=== PATIENT | female | born 1995 | race American Indian/Alaskan Native ===

== ENCOUNTER 2020-11-04 13:32 | Emergency (ER) | payer SELFPAY ==
[2020-11-04 13:52] VITALS: BP 105/69
--- NOTE | 2020-11-04 13:55 | Emergency Department Report ---
Blank Doc - Documentation Documentation: 25-year-old G2 who P1 vaginal presents emerge department for evaluation of cur rent at the been evaluated at a local clinic with a suspicion for no pole being seen on ultrasound and no associated vaginal bleeding or discharge, no fever, chills, sweats no chest pain no palpitation no shortness of breath no dysuria This initial assessment/diagnostic orders/clinical plan/treatment(s) is/are subject to change based on patients health status, clinical progression and re- assessment by fellow clinical providers in the ED. Further treatment and workup at subsequent clinical providers discretion. Patient/guardian urged not to elope from the ED as their condition may be serious if not clinically assessed and managed. Initial orders include: Labs ultrasound urinalysis
--- NOTE | 2020-11-04 14:16 | Emergency Department Report ---
ED Female HPI - General Chief complaint: Abdominal Pain Stated complaint: POSSIBLE MISCARRIAGE Time Seen by Provider: 11/04/20 14:15 Source: patient Mode of arrival: Ambulatory Limitations: No Limitations - History of Present Illness Initial comments: Patient is a 25-year-old -[place] female that comes to the emergency room from the clinic to rule out a miscarriage. This is her third . She has 2 living children. Her last menstrual cycle was 9-24. Patient endorses low back pain but denies any dysuria frequency or urgency. Patient denies fever or chills. She denies abdominal pain. She denies nausea vomiting or diarrhea. Patient is ambulatory and nontoxic on arrival to the ER. She has no hypotension, tachycardia or fever. MD Complaint: other -: Gradual, days(s) Location: other Severity: mild Quality: aching Consistency: intermittent Improves with: none Worsens with: none Are you Now?: Yes Last Menstrual Period: 08/21/20 EDC: 05/28/21 - Related Data Previous Rx's Medication Instructions Recorded Last Taken Type Sulfamethoxazole/Trimethoprim 1 each PO BID #10 tablet 11/04/20 Unknown Rx [Bactrim DS TAB] Allergies Allergy/AdvReac Type Severity Reaction Status Date / Time No Known Allergies Allergy Unverified 11/04/20 13:47 ED Review of Systems ROS: Stated complaint: POSSIBLE MISCARRIAGE Other details as noted in HPI Comment: All other systems reviewed and negative ED Past Medical Hx - Past Medical History Previous Medical History?: No - Surgical History Past Surgical History?: No - Family History Family history: no significant - Social History Substance Use Type: Alcohol - Medications Home Medications: Home Medications Medication Instructions Recorded Confirmed Last Taken Type Sulfamethoxazole/Trimethoprim 1 each PO BID #10 tablet 11/04/20 Unknown Rx [Bactrim DS TAB] ED Physical Exam - General Limitations: No Limitations General appearance: alert, in no apparent distress - Head Head exam: Present: atraumatic, normocephalic - Eye Eye exam: Present: normal appearance - ENT ENT exam: Present: mucous membranes moist - Neck Neck exam: Present: normal inspection - Respiratory Respiratory exam: Present: normal lung sounds bilaterally. Absent: respiratory distress - Cardiovascular Cardiovascular Exam: Present: regular rate, normal rhythm. Absent: systolic murmur, diastolic murmur, rubs, gallop - GI/Abdominal GI/Abdominal exam: Present: soft, normal bowel sounds - Extremities Exam Extremities exam: Present: normal inspection - Back Exam Back exam: Present: normal inspection - Neurological Exam Neurological exam: Present: alert, oriented X3 - Psychiatric Psychiatric exam: Present: normal affect, normal mood - Skin Skin exam: Present: warm, dry, intact, normal color. Absent: rash ED Course Vital Signs 11/04/20 13:48 Temperature 98.8 F Pulse Rate 99 H Respiratory 18 Rate Blood Pressure 105/69 [Right] O2 Sat by Pulse 100 Oximetry ED Medical Decision Making - Lab Data Result diagrams: 11/04/20 15:17 11/04/20 15:17 - Radiology Data Radiology results: report reviewed, image reviewed Ultrasound noted - Medical Decision Making Lab Results 11/04/20 11/04/20 11/04/20 Range/Units 15:17 15:17 15:17 WBC 6.4 (4.5-11.0) K/mm3 RBC 4.64 (3.65-5.03) M/mm3 Hgb 12.3 (10.1-14.3) gm/dl Hct 37.7 (30.3-42.9) % MCV 81 (79-97) fl MCH 27 L (28-32) pg MCHC 33 (30-34) % RDW 13.4 (13.2-15.2) % Plt Count 225 (140-440) K/mm3 Lymph % (Auto) 27.5 (13.4-35.0) % [place] % (Auto) 6.0 (0.0-7.3) % Eos % (Auto) 0.2 (0.0-4.3) % Baso % (Auto) 0.6 (0.0-1.8) % Lymph # (Auto) 1.8 (1.2-5.4) K/mm3 [place] # (Auto) 0.4 (0.0-0.8) K/mm3 Eos # (Auto) 0.0 (0.0-0.4) K/mm3 Baso # (Auto) 0.0 (0.0-0.1) K/mm3 Seg Neutrophils % 65.7 (40.0-70.0) % Seg Neutrophils # 4.2 (1.8-7.7) K/mm3 Sodium (137-145) mmol/L Potassium (3.6-5.0) mmol/L Chloride (98-107) mmol/L Carbon Dioxide (22-30) mmol/L Anion Gap mmol/L BUN (7-17) mg/dL Creatinine (0.6-1.2) mg/dL Estimated GFR ml/min BUN/Creatinine Ratio % Glucose (65-100) mg/dL Calcium (8.4-10.2) mg/dL HCG, Qual Positive (Negative) HCG, Quant 68159 H (0-4) mIU/mL Urine Color (Yellow) Urine Turbidity (Clear) Urine pH (5.0-7.0) Ur Specific [place] (1.003-1.030) Urine Protein (Negative) mg/dL Urine Glucose (UA) (Negative) mg/dL Urine Ketones (Negative) mg/dL Urine Blood (Negative) Urine Nitrite (Negative) Urine Bilirubin (Negative) Urine Urobilinogen (<2.0) mg/dL Ur Leukocyte Esterase (Negative) Urine WBC (Auto) (0.0-6.0) /HPF Urine RBC (Auto) (0.0-6.0) /HPF U Epithel Cells (Auto) (0-13.0) /HPF Urine Mucus /HPF 11/04/20 11/04/20 Range/Units 15:17 Unknown WBC (4.5-11.0) K/mm3 RBC (3.65-5.03) M/mm3 Hgb (10.1-14.3) gm/dl Hct (30.3-42.9) % MCV (79-97) fl MCH (28-32) pg MCHC (30-34) % RDW (13.2-15.2) % Plt Count (140-440) K/mm3 Lymph % (Auto) (13.4-35.0) % [place] % (Auto) (0.0-7.3) % Eos % (Auto) (0.0-4.3) % Baso % (Auto) (0.0-1.8) % Lymph # (Auto) (1.2-5.4) K/mm3 [place] # (Auto) (0.0-0.8) K/mm3 Eos # (Auto) (0.0-0.4) K/mm3 Baso # (Auto) (0.0-0.1) K/mm3 Seg Neutrophils % (40.0-70.0) % Seg Neutrophils # (1.8-7.7) K/mm3 Sodium 137 (137-145) mmol/L Potassium 3.8 (3.6-5.0) mmol/L Chloride 102.0 (98-107) mmol/L Carbon Dioxide 24 (22-30) mmol/L Anion Gap 15 mmol/L BUN 9 (7-17) mg/dL Creatinine 0.6 (0.6-1.2) mg/dL Estimated GFR > 60 ml/min BUN/Creatinine Ratio 15 % Glucose 82 (65-100) mg/dL Calcium 9.9 (8.4-10.2) mg/dL HCG, Qual (Negative) HCG, Quant (0-4) mIU/mL Urine Color Yellow (Yellow) Urine Turbidity Slightly-cloudy (Clear) Urine pH 5.0 (5.0-7.0) Ur Specific [place] 1.025 (1.003-1.030) Urine Protein <15 mg/dl (Negative) mg/dL Urine Glucose (UA) Neg (Negative) mg/dL Urine Ketones Tr (Negative) mg/dL Urine Blood Neg (Negative) Urine Nitrite Neg (Negative) Urine Bilirubin Neg (Negative) Urine Urobilinogen < 2.0 (<2.0) mg/dL Ur Leukocyte Esterase Mod (Negative) Urine WBC (Auto) 4.0 (0.0-6.0) /HPF Urine RBC (Auto) 5.0 (0.0-6.0) /HPF U Epithel Cells (Auto) 17.0 H (0-13.0) /HPF Urine Mucus 1+ /HPF Vital Signs 11/04/20 13:48 Temperature 98.8 F Pulse Rate 99 H Respiratory 18 Rate Blood Pressure 105/69 [Right] O2 Sat by Pulse 100 Oximetry Labs noted. Serum quant noted UA noted. Patient medicated with a gram of Rocephin. Patient is ambulatory, nontoxic and afebrile. She has no hypotension or tachycardia. Patient denies any vaginal bleeding or abdominal pain. She has no nausea vo miting or diarrhea. She has no CVA tenderness. Urine culture is pending. Please call her if she needs something in addition to what we have already provided her. Patient is taking p.o. without difficulty Patient is being discharged home with a course of Bactrim for her UTI. She understands that she needs to follow-up with the [facility] DES[facility] in 48 hours for serial quant levels. I have explained to her that we can not give her an answer about a miscarriage until such time. Patient has been instructed to take Tylenol for pain. Patient also educated on pelvic rest. Patient on discharge is nonill nontoxic and ambulatory. - Differential Diagnosis Rule out miscarriage Critical care attestation.: If time is entered above; I have spent that time in minutes in the direct care of this critically ill patient, excluding procedure time. ED Disposition Clinical Impression: UTI (urinary tract infection), Threatened Disposition: TO HOME OR SELFCARE Is pt being admited?: No Does the pt Need Aspirin: No Condition: Stable Instructions: Threatened Miscarriage, Urinary Tract Infection, Adult, Abdominal Pain (ED) Additional Instructions: nothing in vagina- no sex/tampon tylenol for pain follow up with obgyn in 48hours for repeat labs this is how they will determine if you are having miscarriage referral to obgyn below no drugs/alcohol or cig. smoking diet and activity as tolerated meds as ordered today Prescriptions: Sulfamethoxazole/Trimethoprim [Bactrim DS TAB] 1 each PO BID #10 tablet Referrals: DANIELLE BORJAS MD [Staff Physician] - 3-5 Days Time of Disposition: 16:12
[2020-11-04 14:35] LABS: Bilirubin,Urine NEG (Negative); Blood,Urine NEG (Negative); Color,Urine Yellow (Yellow); Mucus,Urine 1+ /HPF; Protein,Urine <15 mg/dL mg/dL (Negative); Urobilinogen,Urine < 2.0 mg/dL (<2.0)
--- NOTE | 2020-11-04 15:38 | Ultrasound Report ---
US OB transvaginal, US OB <= 14 weeks fetus INDICATION / CLINICAL INFORMATION: pelvic pain and . TECHNIQUE: Transabdominal and Transvaginal. COMPARISON: None available. FINDINGS: UTERUS: Appears within normal limits. 2.3 cm lower uterine segment lesion most consistent with a fibr oid. GESTATIONAL SAC: Well-defined oval shape and intrauterine in location. Measures 25 mm which is consis tent with 7 weeks and 4 days. YOLK SAC: Not visualized. EMBRYO/FETUS: No pole is visualized. ADNEXA: No significant abnormality. FREE FLUID: None. ADDITIONAL FINDINGS: None. IMPRESSION: 1. There is a gestational sac measuring 25 mm without a pole. This is highly suggestive of preg sudhakar failure. Recommend correlation with trending beta-hCG and repeat sonograms as clinically needed . Signer Name: Greg Martinez MD Signed: 11/04/2020 3:33 PM Workstation Name: [id number]
[2020-11-04 15:47] LABS: Basophils % (Auto) 0.6 % (0.0-1.8); Eosinophils % (Auto) 0.2 % (0.0-4.3); Hematocrit 37.7 % (30.3-42.9); Hemoglobin 12.3 gm/dl (10.1-14.3); Lymphocytes # (Auto) 1.8 K/mm3 (1.2-5.4); Lymphocytes % (Auto) 27.5 % (13.4-35.0); Mean Corpuscular HGB Conc 33 % (30-34); Mean Corpuscular Volume 81 fl (79-97); Monocytes # (Auto) 0.4 K/mm3 (0.0-0.8); Platelet Count 225 K/mm3 (140-440); Red Blood Count 4.64 M/mm3 (3.65-5.03); Red Cell Distribution Width 13.4 % (13.2-15.2)
[2020-11-04 15:50] LABS: Blood Urea Nitrogen 9 mg/dL (7-17); Calcium 9.9 mg/dL (8.4-10.2); Hemolysis Index 10
[2020-11-04] MEDS ORDERED: LIDOCAINE-MPF (1%) 10 MG/1 ML VIAL 5 ML INFILTRATI ONE (15:51)
[2020-11-04 15:55] LABS: BUN/Creatinine Ratio 15
== END 2020-11-04 16:56 | disposition home or self-care (01) ==
LOC: ED 13:32
DX: O20.0 Threatened abortion (principal); O23.41 Unspecified infection of urinary tract in pregnancy, first trimester; Z3A.01 Less than 8 weeks gestation of pregnancy; Z79.899 Other long term (current) drug therapy
CPT/HCPCS: 36415; 76801; 76817; 80048; 81001; 84702; 84703; 85025; 86900; 86901; 87086; 96372; 99284; J0696

== ENCOUNTER 2020-11-11 19:04 | Emergency (ER) | payer SELFPAY | END 2020-11-11 19:25 | disposition left against medical advice (07) | LOC: ED 19:04 | DX: O20.9 Hemorrhage in early pregnancy, unspecified (principal); Z53.21 Procedure and treatment not carried out due to patient leaving prior to being seen by health care provider ==

== ENCOUNTER 2020-11-11 19:54 | Emergency (ER) | payer SELFPAY ==
[2020-11-11 20:55] LABS: Basophils % (Auto) 0.5 % (0.0-1.8); Eosinophils % (Auto) 0.5 % (0.0-4.3); Hematocrit 36.6 % (30.3-42.9); Lymphocytes # (Auto) 2.2 K/mm3 (1.2-5.4); Lymphocytes % (Auto) 37.2 % (13.4-35.0); Mean Corpuscular HGB Conc 33 % (30-34); Mean Corpuscular Volume 81 fl (79-97); Monocytes # (Auto) 0.4 K/mm3 (0.0-0.8); Monocytes % (Auto) 6.9 % (0.0-7.3); Platelet Count 233 K/mm3 (140-440); Red Blood Count 4.54 M/mm3 (3.65-5.03); Red Cell Distribution Width 13.5 % (13.2-15.2)
[2020-11-11 21:11] LABS: BUN/Creatinine Ratio 12; Blood Urea Nitrogen 11 mg/dL (7-17); Hemolysis Index 6
[2020-11-11 21:13] LABS: Bilirubin,Urine NEG (Negative); Blood,Urine NEG (Negative); Color,Urine Yellow (Yellow); Mucus,Urine FEW /HPF; Protein,Urine <15 mg/dL mg/dL (Negative); Urobilinogen,Urine < 2.0 mg/dL (<2.0)
--- NOTE | 2020-11-11 22:10 | Ultrasound Report ---
FIRSTTRIMESTER OBSTETRIC ULTRASOUND HISTORY: Provided clinical history of , bleeding COMPARISON: Obstetric ultrasound 11/04/2020 TECHNIQUE: Routine transabdominal OB ultrasound performed. FINDINGS: Uterus: Mildly enlarged measuring 8.2 x 5.0 x 7.2 cm. Gestational Sac: Well-defined oval shape and intrauterine in location. Measures 33 cm. Gestational s ac is empty without evidence of yolk sac or pole. Placenta: Too small for evaluation. Amniotic fluid volume: Subjectively appropriate for gestational age. Ovaries: The right ovary is normal in size and appearance with normal blood flow, measuring 3.2 x 1. 9 x 2.2 cm. The left ovary is normal in size and appearance with normal blood flow, measuring 3.1 x 1.8 x 2.7 cm. Additional findings: Cervical length is 3.8 cm. IMPRESSION Empty gestational sac consistent with failed early . Recommend clinical correlation and seri al beta hCG, as warranted. Signer Name: Magno Lovelace MD Signed: 11/11/2020 10:06 PM Workstation Name: [id number]
[2020-11-11 23:08] VITALS: BP 108/66
== END 2020-11-11 21:00 | disposition left against medical advice (07) ==
LOC: ED 19:54
DX: O20.9 Hemorrhage in early pregnancy, unspecified (principal); Z53.21 Procedure and treatment not carried out due to patient leaving prior to being seen by health care provider; Z3A.01 Less than 8 weeks gestation of pregnancy
CPT/HCPCS: 36415; 76801; 80048; 81001; 84702; 85025; 86900; 86901

== ENCOUNTER 2020-11-12 18:59 | Emergency (ER) | payer SELFPAY ==
[2020-11-12 19:52] VITALS: BP 96/78
[2020-11-12 20:45] LABS: Basophils % (Auto) 0.7 % (0.0-1.8); Eosinophils # (Auto) 0.1 K/mm3 (0.0-0.4); Eosinophils % (Auto) 1.3 % (0.0-4.3); Hematocrit 34.2 % (30.3-42.9); Hemoglobin 11.6 gm/dl (10.1-14.3); Lymphocytes # (Auto) 2.5 K/mm3 (1.2-5.4); Lymphocytes % (Auto) 44.2 % (13.4-35.0); Mean Corpuscular HGB Conc 34 % (30-34); Mean Corpuscular Volume 80 fl (79-97); Monocytes # (Auto) 0.4 K/mm3 (0.0-0.8); Monocytes % (Auto) 6.7 % (0.0-7.3); Platelet Count 212 K/mm3 (140-440); Red Blood Count 4.29 M/mm3 (3.65-5.03); Red Cell Distribution Width 13.4 % (13.2-15.2)
--- NOTE | 2020-11-12 20:52 | Emergency Department Report ---
ED HPI - General Chief complaint: Vaginal Bleeding Stated complaint: 8 WKS /BLEEDING Time Seen by Provider: 11/12/20 20:47 Source: patient Mode of arrival: Ambulatory Limitations: No Limitations - History of Present Illness Initial comments: Patient is a 25-year-old female presents emergency room with complaints of vaginal bleeding that began yesterday. She states that it is mostly spotting. She denies any blood clots. She states that she has some mild lower abdominal cramping but denies any significant pain. She denies any fever, abnormal discharge, vomiting, diarrhea, dysuria. No past medical history. No allergies to medications. Last menstrual cycle 08/21/2020. /P: 3/A: 0. she was evaluated in the ED on 11/04/2020 [place] [id number] at that time. US on 11/04/2020: 1. There is a gestational sac measuring 25 mm without a pole. This is highly suggestive of failure. Recommend correlation with trending beta-hCG and repeat sonograms as clinically needed. she was in the ED yesterday but left before being seen and her quant was [id number]. US on 11/11/2020: Empty gestational sac consistent with failed early . Recommend clinical correlation and serial beta hCG, as warranted. - Related Data Previous Rx's Medication Instructions Recorded Last Taken Type Sulfamethoxazole/Trimethoprim 1 each PO BID #10 tablet 11/04/20 Unknown Rx [Bactrim DS TAB] Allergies Allergy/AdvReac Type Severity Reaction Status Date / Time No Known Allergies Allergy Unverified 11/04/20 13:47 ED Review of Systems ROS: Stated complaint: 8 WKS /BLEEDING Other details as noted in HPI Comment: All other systems reviewed and negative ED Past Medical Hx - Past Medical History Previous Medical History?: No - Surgical History Past Surgical History?: No - Social History Smoking Status: Never Smoker - Medications Home Medications: Home Medications Medication Instructions Recorded Confirmed Last Taken Type Sulfamethoxazole/Trimethoprim 1 each PO BID #10 tablet 11/04/20 Unknown Rx [Bactrim DS TAB] ED Physical Exam - General Limitations: No Limitations General appearance: alert, in no apparent distress - Head Head exam: Present: atraumatic, normocephalic - Eye Eye exam: Present: normal appearance - ENT ENT exam: Present: mucous membranes moist - Respiratory Respiratory exam: Present: normal lung sounds bilaterally. Absent: respiratory distress, wheezes, rales, rhonchi, stridor, chest wall tenderness, accessory muscle use, decreased breath sounds, prolonged expiratory - Cardiovascular Cardiovascular Exam: Present: regular rate, normal rhythm, normal heart sounds. Absent: systolic murmur, diastolic murmur, rubs, gallop - GI/Abdominal GI/Abdominal exam: Present: soft, normal bowel sounds. Absent: distended, tenderness, guarding, rebound, rigid - Neurological Exam Neurological exam: Present: alert, oriented X3 - Psychiatric Psychiatric exam: Present: normal affect, normal mood - Skin Skin exam: Present: warm, dry, intact ED Course Vital Signs 11/12/20 19:43 Temperature 97.9 F Pulse Rate 78 Respiratory 16 Rate Blood Pressure 96/78 O2 Sat by Pulse 91 Oximetry ED Medical Decision Making - Lab Data Result diagrams: 11/12/20 20:20 Lab Results 11/12/20 11/12/20 Range/Units 20:20 20:20 WBC 5.7 (4.5-11.0) K/mm3 RBC 4.29 (3.65-5.03) M/mm3 Hgb 11.6 (10.1-14.3) gm/dl Hct 34.2 (30.3-42.9) % MCV 80 (79-97) fl MCH 27 L (28-32) pg MCHC 34 (30-34) % RDW 13.4 (13.2-15.2) % Plt Count 212 (140-440) K/mm3 Lymph % (Auto) 44.2 H (13.4-35.0) % [place] % (Auto) 6.7 (0.0-7.3) % Eos % (Auto) 1.3 (0.0-4.3) % Baso % (Auto) 0.7 (0.0-1.8) % Lymph # (Auto) 2.5 (1.2-5.4) K/mm3 [place] # (Auto) 0.4 (0.0-0.8) K/mm3 Eos # (Auto) 0.1 (0.0-0.4) K/mm3 Baso # (Auto) 0.0 (0.0-0.1) K/mm3 Seg Neutrophils % 47.1 (40.0-70.0) % Seg Neutrophils # 2.7 (1.8-7.7) K/mm3 HCG, Quant 3395 H (0-4) mIU/mL - Medical Decision Making Patient is a 25-year-old female presents emergency room with complaints of vaginal bleeding that began yesterday. She states that it is mostly spotting. She denies any blood clots. She states that she has some mild lower abdominal cramping but denies any significant pain. She denies any fever, abnormal d ischarge, vomiting, diarrhea, dysuria. No past medical history. No allergies to medications. Last menstrual cycle 08/21/2020. /P: 3/A: 0. she was evaluated in the ED on 11/04/2020 [place] [id number] at that time. US on 11/04/2020: 1. There is a gestational sac measuring 25 mm without a pole. This is highly suggestive of failure. Recommend correlation with trending beta-hCG and repeat sonograms as clinically needed. she was in the ED yesterday but left before being seen and her quant was [id number]. US on 11/11/2020: Empty gestational sac consistent with failed early . Recommend clinical correlation and serial beta hCG, as warranted. pt is Rh +. UA from 11/11/2020 without evidence of UTI. CBC is normal. hcg quant is now 3395. Her hCG quant continues to decline consistent with a miscarriage. Discussed all results with patient and answered questions. Discussed the importance of [facility] follow-up within the next 2 days. Advised patient that she will need to have a repeat hCG quant and likely ultrasound to make sure that she has expelled all products of conception, she verbalized understanding. discussed very strict return precautions in detail with pt. Advised patient please follow up with an [facility] DEVEL[facility]. it is very important you follow up. return to the emergency room for any new or worsening symptoms. Critical care attestation.: If time is entered above; I have spent that time in minutes in the direct care of this critically ill patient, excluding procedure time. ED Disposition Clinical Impression: Threatened miscarriage Disposition: DC-01 TO HOME OR SELFCARE Is pt being admited?: No Does the pt Need Aspirin: No Condition: Stable Instructions: Threatened Miscarriage Additional Instructions: please follow up with an [facility]EL[facility]. it is very important you follow up. return to the emergency room for any new or worsening symptoms. Referrals: PRIMARY CARE, [Primary Care Provider] - 2-3 Days [facility] [Provider Group] - 2-3 Days [facility], [facility] [Provider Group] - 2-3 Days [facility] [Provider Group] - 2-3 Days Time of Disposition: 20:52 Print Language: GERMAN
[2020-11-12 22:28] LABS: Bilirubin,Urine NEG (Negative); Blood,Urine LG (Negative); Color,Urine Yellow (Yellow); Mucus,Urine FEW /HPF; Urobilinogen,Urine < 2.0 mg/dL (<2.0)
== END 2020-11-12 20:59 | disposition home or self-care (01) ==
LOC: ED 18:59
DX: O20.0 Threatened abortion (principal); Z3A.01 Less than 8 weeks gestation of pregnancy; Z79.899 Other long term (current) drug therapy
CPT/HCPCS: 36415; 81001; 84702; 85025